=== PATIENT | male | born 2000 | race Caucasian/White ===

== ENCOUNTER 2021-04-29 12:01 | Emergency (ER) | payer OTHER ==
[~2021-04-29] VITALS: Ht 175.3 cm; Wt 84.1 kg
--- NOTE | 2021-04-29 12:54 | REP ---
INDICATION: trauma COMPARISON: None. TECHNIQUE: PA and lateral. FINDINGS: The mediastinum and cardiac silhouette are normal. The lung kirk are clear and without acute consolidation, effusion, or pneumothorax. The skeletal structures are intact and normal. IMPRESSION: No acute cardiopulmonary process. <Electronically signed by Chinedu Rg > 04/29/21 [id number]
[2021-04-29] MEDS ORDERED: KETOROLAC 30 MG/ML 1ML VIAL IV ONE (13:00)
[2021-04-29 13:31] LABS: BASO % 0.4 % (0.0-1.0); EOS # 0.2 10^3/uL (0.0-0.5); EOS % 1.5 % (0.0-3.0); HEMATOCRIT 48.1 % (42.0-52.0); HEMOGLOBIN 16.7 g/dl (13.5-17.5); LYMPH # 1.9 10^3/uL (1.5-5.0); LYMPH % 17.9 % (24.0-44.0); MEAN CORPUSCULAR HEMOGLOBIN 30.5 pg (27.0-33.0); MEAN CORPUSCULAR HGB CONC 34.7 g/dl (32.0-36.5); MEAN CORPUSCULAR VOLUME 87.9 fl (80.0-96.0); MONO % 9.5 % (2.0-8.0); NEUTROPHILS # 7.3 10^3/uL (1.5-8.5); NEUTROPHILS % 70.1 % (36.0-66.0); PLATELET COUNT, AUTOMATED 243 10^3/uL (150-450); RED BLOOD COUNT 5.47 10^6/uL (4.30-6.10); WHITE BLOOD COUNT 10.3 10^3/uL (4.0-10.0)
[2021-04-29 14:05] LABS: ERYTHROCYTE SEDIMENTATION RATE 2 mm/hr (0-15)
[2021-04-29 14:13] LABS: ALBUMIN 4.3 GM/DL (3.2-5.2); ALT/SGPT 37 U/L (12-78); BILIRUBIN,DIRECT 0.2 MG/DL (0.0-0.2); BILIRUBIN,TOTAL 0.7 MG/DL (0.2-1.0); C REACTIVE PROTEIN QUANTITATIV < 0.30 MG/DL (0.00-0.30); CK-MB VALUE MASS 2.2 NG/ML (<3.6); CPK CREATINE PHOSPHOKINASE 425 U/L (39-308); LIPASE 85 U/L (73-393); MB/CK RELATIVE INDEX 0.52 (< OR =4); NT-PRO BNP 7 PG/ML (<125); TOTAL PROTEIN 7.5 GM/DL (6.4-8.2); TROPONIN I < 0.02 NG/ML (< 0.10)
[2021-04-29] MEDS ORDERED: ISOVUE-370 76% 100ML VIAL As Ordered ONE (14:29)
--- NOTE | 2021-04-29 14:54 | REP ---
INDICATION: blunt chest trauma with syncope; r/o cardiac contusion COMPARISON: None. TECHNIQUE: Axial contrast enhanced images from the thoracic inlet to the upper abdomen using pulmonary embolus technique with multiplanar re-formations. 75 ml Isovue 370 intravenous contrast material administered without complication. This CT examination was performed using the following dose reduction techniques: Automated exposure control, adjustment of mA and/or kv according to the patient's size, and use of iterative reconstruction technique. FINDINGS: Satisfactory enhancement of the pulmonary vasculature is achieved and no filling defects are identified to suggest pulmonary embolus. Further evaluation of the mediastinum demonstrates normal thoracic aorta, heart and pericardium. The bilateral lung kirk are well aerated and clear without consolidation pleural effusion or pneumothorax. Tracheobronchial tree is patent. No nodule or mass lesion is identified. No adenopathy noted. Surrounding musculoskeletal structures intact IMPRESSION: No evidence for pulmonary embolus. No acute mediastinal or pleural parenchymal process. <Electronically signed by Chinedu Rg > 04/29/21 [id number]
[2021-04-29 15:31] VITALS: BP 104/60
--- NOTE | 2021-04-30 20:34 | ECGEPIP ---
[facility] - ED Test Date: 2021-04-29 Pat Name: YURI DENIS Department: Room: - Gender: Male [employer]: LR : 2000 Requested By: Rosi Key Order Number: [id number] Reading MD: Beatriz Ivey Measurements Intervals Wayne Rate: 72 P: 74 NM: 196 QRS: 65 QRSD: 96 T: 40 QT: 368 QTc: 402 Interpretive Statements Normal sinus rhythm Possible Acute pericarditis vs early repolarization No prior Electronically Signed on 04-30-2021 20:34:50 EDT by Beatriz Ivey
== END 2021-04-29 15:41 | disposition home or self-care (01) ==
LOC: M ED 12:01
DX: S20.219A Contusion of unspecified front wall of thorax, initial encounter (principal); X58.XXXA Exposure to other specified factors, initial encounter; Y92.89 Other specified places as the place of occurrence of the external cause
CPT/HCPCS: 36415; 71046; 71275; 80047; 80076; 82550; 82553; 83690; 83880; 84443; 84484; 85025; 85652; 86140; 93005; 93041; 94760; 96374; 99285; J1885; Q9967

== ENCOUNTER → 2024-08-15 | Outpatient (REF) | LOC: M PLAIMG 11:29 | PROVIDERS: ATTEND Family Medicine | DX: M54.2 Cervicalgia (principal) ==

== ENCOUNTER → 2025-08-24 | Outpatient (CLI) | payer OTHER | LOC: M PLARAD 07:51 | PROVIDERS: ATTEND Student in an Organized Health Care Education/Training Program | DX: G40.909 Epilepsy, unspecified, not intractable, without status epilepticus (principal) ==